=== PATIENT | female | born 2000 | race Caucasian/White ===

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

== ENCOUNTER 2021-11-18 11:26 | Emergency (ER) | payer OTHER ==
[~2021-11-18] VITALS: Ht 162.6 cm; Wt 58.1 kg
[~2021-11-18 11:26] MED LIST: AZAT50TA2 PO; PRED10TA PO
[2021-11-18] MEDS ORDERED: DEXAMETHASONE SOD PHOSPHATE 4 MG INJ IM ONE (12:00)
[2021-11-18] MEDS ORDERED: KETOROLAC TROMETHAMINE 15 MG INJ IM ONE (12:00)
[2021-11-18] MEDS ORDERED: KETOROLAC TROMETHAMINE 15 MG INJ ONE (12:21)
[2021-11-18] MEDS ORDERED: DEXAMETHASONE SOD PHOSPHATE 10 MG INJ ONE (12:21)
--- NOTE | 2021-11-18 12:44 | NUR ---
pt seen by MD rapid strep amnd flu swab sent to lab medications administered per MD orders. pt stable
[2021-11-18] MEDS ORDERED: PRED20TA PO (12:48)
== END 2021-11-18 13:00 | disposition home or self-care (01) ==
LOC: ER 11:27
DX: J02.9 Acute pharyngitis, unspecified (principal); Z83.3 Family history of diabetes mellitus
CPT/HCPCS: 99284; 86403; 87400; 87070; 96372 ×2; J1100; J1885; A4663

== ENCOUNTER 2022-06-30 10:47 | Emergency (ER) | payer OTHER ==
[~2022-06-30] VITALS: Ht 162.6 cm; Wt 57.2 kg
[~2022-06-30 10:47] MED LIST changes: +PRED20TA PO
[2022-06-30] MEDS ORDERED: KETOROLAC TROMETHAMINE 30 MG INJ ONE (11:29)
[2022-06-30] MEDS ORDERED: KETOROLAC TROMETHAMINE 30 MG INJ IM ONE (11:30)
[2022-06-30] MEDS ORDERED: NAPR-1164 PO (12:42)
[2022-06-30] MEDS ORDERED: CYCL10TA9 PO (12:42)
--- NOTE | 2022-06-30 12:49 | NUR ---
Patient discharged to home in stable condition. Written and verbal after care instructions given. Patient verbalizes understanding of instructions. Stressed follow up or return to ER for worsening s/s.
== END 2022-06-30 13:11 | disposition home or self-care (01) ==
LOC: ER 10:47
DX: M54.50 Low back pain, unspecified (principal); Z83.3 Family history of diabetes mellitus
CPT/HCPCS: 99283; 72100; 96372; J1885; A4663